=== PATIENT | female | born 1955 | race Caucasian/White ===

== ENCOUNTER 2017-03-04 11:32 | Emergency (ER) | payer OTHER ==
[2017-03-04] MEDS ORDERED: NS 0.9% 1000 ML* 1,000 ML IV ONE (11:48)
[2017-03-04] MEDS ORDERED: Metoclopramide IV* 5 MG/ML 2 ML VIAL IV ONE (11:48)
[2017-03-04] MEDS ORDERED: Ketorolac INJ* 30 MG/ML 1 ML VIAL IV ONE (11:48)
[2017-03-04] MEDS ORDERED: diPHENhydraMINE IV* 50 MG/ML 1 ml VIAL (BENADRYL) IV ONE (11:48)
[2017-03-04 12:17] LABS: ABS Basophils 0 10^3/ul (0-0.2); ABS Eosinophils 0.2 10^3/ul (0-0.6); ABS Lymphocytes 0.5 10^3/ul (1.0-4.8); ABS Monocytes 0.6 10^3/ul (0-0.8); ABS Neutrophils 4.3 10^3/ul (1.5-7.7); ABS Nucleated RBC 0 10^3/ul; Eosinophil % 3.7 % (0-6); Hematocrit 38 % (35-47); Hemoglobin 12.5 g/dl (12.0-16.0); Lymphocyte % 9.3 % (25-47); Mean Corpuscular HGB Conc 33 g/dl (31-36); Mean Corpuscular Hemoglobin 28 pg (27-31); Mean Corpuscular Volume 84 fL (80-97); Mean Platelet Volume 7 um3 (7.4-10.4); Nucleated Red Blood Cells % 0.2; Platelet Count 274 10^3/ul (150-450); Red Blood Count 4.49 10^6/ul (4.0-5.4); Red Cell Distribution Width 15 % (10.5-15); White Blood Count 5.7 10^3/ul (3.5-10.8)
--- NOTE | 2017-03-04 12:21 | RAD ---
HISTORY: Headache COMPARISONS: None TECHNIQUE: Multiple contiguous axial CT scans were obtained of the head without intravenous contrast. FINDINGS: HEMORRHAGE/INFARCT: There is no hemorrhage or acute infarct. MASSES/SHIFT: There is no mass or shift. EXTRA-AXIAL SPACES: There are no extra-axial fluid collections. SULCI AND VENTRICLES: The sulci and ventricles are normal in size and position for the patient's stated age. CEREBRUM: There are no focal parenchymal abnormalities. BRAINSTEM: There are no focal parenchymal abnormalities. CEREBELLUM: There are no focal parenchymal abnormalities. VESSELS: The vessels are grossly normal. PARANASAL SINUSES: The paranasal sinuses are clear. ORBITS: The orbits are unremarkable. BONES AND SOFT TISSUE: No bone or soft tissue abnormalities are noted. OTHER: None IMPRESSION: NO ACUTE INTRACRANIAL PATHOLOGY.
[2017-03-04 12:30] LABS: EGFR Non-African American 97.2 (>60)
[2017-03-04 13:21] VITALS: BP 126/68
--- NOTE | 2017-03-05 08:09 | ED ---
Landen Ge Angela, scribed for Richy Dowell MD on 03/04/17 at 1150 . Influenza-Like Illness - HPI Summary HPI Summary: This pt is a 61 y/o female presenting to [facility] c/o flu like symptoms x3 days. Pt reports progressively worsening nonproductive cough and sore throat. She states she saw her PCP (Dr. Sahni) yesterday and was prescribed Tamiflu as he thought it was the flu. Pt notes she had a fever last night. Today she reports nausea, vomiting, and headache. Denies fever today. - History of Current Complaint Chief Complaint: EDFluSymptoms Time Seen by Provider: 03/04/17 11:40 Hx Obtained From: Patient Onset/Duration: Lasting Days, Still Present Severity: Moderate Associated Signs & Symptoms: Fever - yesterday, Cough, Sore Throat, Headache, Vomiting - Allergy/Home Medications Allergies/Adverse Reactions: Allergies Allergy/AdvReac Type Severity Reaction Status Date / Time No Known Allergies Allergy Verified 03/04/17 11:35 Home Medications: Home Medications Alitretinoin [Panretin] 0.1 % TOPICAL BID 03/04/17 [History Confirmed 03/04/17] Lidocaine 2% VISCOUS* [Xylocaine 2% Viscous*] 15 ml SWISH SPIT Q4H 03/04/17 [ History Confirmed 03/04/17] Lisinopril/HCTZ 20/12.5(NF) [Zestoretic 20/12.5(NF)] 1 tab PO DAILY 03/04/17 [ History Confirmed 03/04/17] Oseltamivir CAP* [Tamiflu CAP*] 75 mg PO BID 03/04/17 [History Confirmed ] Triamcinolone 0.1% CREAM (NF) [Kenalog 0.1% Cream (NF)] 1 applic TOPICAL BID [History Confirmed 03/04/17] diPHENhydraMINE PO* [Benadryl PO 25 MG TAB*] 25 mg PO DAILY 03/04/17 [History Confirmed 03/04/17] PMH/Surg Hx/FS Hx/Imm Hx Endocrine/Hematology History: Denies: Hx Diabetes Cardiovascular History: Reports: Hx Hypertension - W/MEDS Musculoskeletal History: Denies: Hx Osteoporosis - Cancer History Hx Chemotherapy: No Hx Radiation Therapy: No - Surgical History Surgery Procedure, Year, and Place: Hysterectomy. knee surgery. corneal repairs Infectious Disease History: No Infectious Disease History: Denies: Traveled Outside the [place] in Last 30 Days - Family History Known Family History: Negative: Cardiac Disease, Diabetes - Social History Alcohol Use: Weekly Substance Use Type: Reports: None Hx Tobacco Use: No Smoking Status (MU): Never Smoked Tobacco Review of Systems Negative: Fever - yesterday, not today, Chills Positive: Sore Throat Positive: Cough Positive: Vomiting, Nausea Positive: Headache All Other Systems Reviewed And Are Negative: Yes Physical Exam - Summary Physical Exam Summary: VITAL SIGNS: Reviewed. GENERAL: Patient is a well-developed and nourished female who is lying comfortable in the stretcher. Patient is not in any acute respiratory distress. Pt looks dehydrated. HEAD AND FACE: No signs of trauma. No ecchymosis, hematomas or skull depressions. No sinus tenderness. EYES: PERRLA, EOMI x 2, No injected conjunctiva, no nystagmus. EARS: Hearing grossly intact. Ear canals and tympanic membranes are within normal limits. MOUTH: Oropharynx within normal limits. Dry oral mucosa. NECK: Supple, trachea is midline, no adenopathy, no JVD, no carotid bruit, no c- spine tenderness, neck with full ROM. CHEST: Symmetric, no tenderness at palpation LUNGS: Clear to auscultation bilaterally. No wheezing or crackles. CVS: Regular rate and rhythm, S1 and S2 present, no murmurs or gallops appreciated. ABDOMEN: Soft, non-tender. No signs of distention. No rebound no guarding, and no masses palpated. Bowel sounds are normal. EXTREMITIES: FROM in all major joints, no edema, no cyanosis or clubbing. NEURO: Alert and oriented x 3. No acute neurological deficits. Speech is normal and follows commands. SKIN: Dry and warm Triage Information Reviewed: Yes Vital Signs On Initial Exam: Initial Vitals Temp Pulse Resp BP Pulse Ox 98.4 F 80 16 138/79 94 03/04/17 11:33 03/04/17 11:33 03/04/17 11:33 03/04/17 11:33 03/04/17 11:33 Vital Signs Reviewed: Yes - Ramon Coma Scale Best Eye Response: 4 - Spontaneous Best Motor Response: 6 - Obeys Commands Best Verbal Response: 5 - Oriented Coma Scale Total: 15 Diagnostics - Vital Signs Vital Signs Temp Pulse Resp BP Pulse Ox 03/04/17 11:33 98.4 F 80 16 138/79 94 - Laboratory Lab Results: Lab Results 03/04/17 03/04/17 03/04/17 Range/Units 11:59 11:59 11:59 WBC 5.7 (3.5-10.8) 10^3/ul RBC 4.49 (4.0-5.4) 10^6/ul Hgb 12.5 (12.0-16.0) g/dl Hct 38 (35-47) % MCV 84 (80-97) fL MCH 28 (27-31) pg MCHC 33 (31-36) g/dl RDW 15 (10.5-15) % Plt Count 274 (150-450) 10^3/ul MPV 7 L (7.4-10.4) um3 Neut % (Auto) 76.1 (38-83) % Lymph % (Auto) 9.3 L (25-47) % Perry % (Auto) 10.0 H (1-9) % Eos % (Auto) 3.7 (0-6) % Baso % (Auto) 0.9 (0-2) % Absolute Neuts (auto) 4.3 (1.5-7.7) 10^3/ul Absolute Lymphs (auto) 0.5 L (1.0-4.8) 10^3/ul Absolute Monos (auto) 0.6 (0-0.8) 10^3/ul Absolute Eos (auto) 0.2 (0-0.6) 10^3/ul Absolute Basos (auto) 0 (0-0.2) 10^3/ul Absolute Nucleated RBC 0 10^3/ul Nucleated RBC % 0.2 ESR 28 (0-30) mm/Hr APTT 30.1 (26.0-36.3) seconds Carbon Monoxide Screen < 4 (<4.0) % Sodium (133-145) mmol/L Potassium (3.5-5.0) mmol/L Chloride (101-111) mmol/L Carbon Dioxide (22-32) mmol/L Anion Gap (2-11) mmol/L BUN (6-24) mg/dL Creatinine (0.51-0.95) mg/dL Est GFR ( Amer) (>60) Est GFR (Non-Af Amer) (>60) BUN/Creatinine Ratio (8-20) Glucose (70-100) mg/dL Lactic Acid (0.5-2.0) mmol/L Calcium (8.6-10.3) mg/dL Total Bilirubin (0.2-1.0) mg/dL AST (13-39) U/L ALT (7-52) U/L Alkaline Phosphatase (34-104) U/L Total Protein (6.4-8.9) g/dL Albumin (3.2-5.2) g/dL Globulin (2-4) g/dL Albumin/Globulin Ratio (1-3) Influenza A (Rapid) (Negative) Influenza B (Rapid) (Negative) Group A Strep Rapid (Negative) 03/04/17 03/04/17 03/04/17 Range/Units 11:59 11:59 12:33 WBC (3.5-10.8) 10^3/ul RBC (4.0-5.4) 10^6/ul Hgb (12.0-16.0) g/dl Hct (35-47) % MCV (80-97) fL MCH (27-31) pg MCHC (31-36) g/dl RDW (10.5-15) % Plt Count (150-450) 10^3/ul MPV (7.4-10.4) um3 Neut % (Auto) (38-83) % Lymph % (Auto) (25-47) % Perry % (Auto) (1-9) % Eos % (Auto) (0-6) % Baso % (Auto) (0-2) % Absolute Neuts (auto) (1.5-7.7) 10^3/ul Absolute Lymphs (auto) (1.0-4.8) 10^3/ul Absolute Monos (auto) (0-0.8) 10^3/ul Absolute Eos (auto) (0-0.6) 10^3/ul Absolute Basos (auto) (0-0.2) 10^3/ul Absolute Nucleated RBC 10^3/ul Nucleated RBC % ESR (0-30) mm/Hr APTT (26.0-36.3) seconds Carbon Monoxide Screen (<4.0) % Sodium 133 (133-145) mmol/L Potassium 3.6 (3.5-5.0) mmol/L Chloride 100 L (101-111) mmol/L Carbon Dioxide 26 (22-32) mmol/L Anion Gap 7 (2-11) mmol/L BUN 13 (6-24) mg/dL Creatinine 0.62 (0.51-0.95) mg/dL Est GFR ( Amer) 125.0 (>60) Est GFR (Non-Af Amer) 97.2 (>60) BUN/Creatinine Ratio 21.0 H (8-20) Glucose 122 H (70-100) mg/dL Lactic Acid 0.8 (0.5-2.0) mmol/L Calcium 8.5 L (8.6-10.3) mg/dL Total Bilirubin 0.40 (0.2-1.0) mg/dL AST 12 L (13-39) U/L ALT 13 (7-52) U/L Alkaline Phosphatase 44 (34-104) U/L Total Protein 6.4 (6.4-8.9) g/dL Albumin 3.6 (3.2-5.2) g/dL Globulin 2.8 (2-4) g/dL Albumin/Globulin Ratio 1.3 (1-3) Influenza A (Rapid) Negative (Negative) Influenza B (Rapid) Positive H (Negative) Group A Strep Rapid (Negative) 03/04/17 Range/Units 12:39 WBC (3.5-10.8) 10^3/ul RBC (4.0-5.4) 10^6/ul Hgb (12.0-16.0) g/dl Hct (35-47) % MCV (80-97) fL MCH (27-31) pg MCHC (31-36) g/dl RDW (10.5-15) % Plt Count (150-450) 10^3/ul MPV (7.4-10.4) um3 Neut % (Auto) (38-83) % Lymph % (Auto) (25-47) % Perry % (Auto) (1-9) % Eos % (Auto) (0-6) % Baso % (Auto) (0-2) % Absolute Neuts (auto) (1.5-7.7) 10^3/ul Absolute Lymphs (auto) (1.0-4.8) 10^3/ul Absolute Monos (auto) (0-0.8) 10^3/ul Absolute Eos (auto) (0-0.6) 10^3/ul Absolute Basos (auto) (0-0.2) 10^3/ul Absolute Nucleated RBC 10^3/ul Nucleated RBC % ESR (0-30) mm/Hr APTT (26.0-36.3) seconds Carbon Monoxide Screen (<4.0) % Sodium (133-145) mmol/L Potassium (3.5-5.0) mmol/L Chloride (101-111) mmol/L Carbon Dioxide (22-32) mmol/L Anion Gap (2-11) mmol/L BUN (6-24) mg/dL Creatinine (0.51-0.95) mg/dL Est GFR ( Amer) (>60) Est GFR (Non-Af Amer) (>60) BUN/Creatinine Ratio (8-20) Glucose (70-100) mg/dL Lactic Acid (0.5-2.0) mmol/L Calcium (8.6-10.3) mg/dL Total Bilirubin (0.2-1.0) mg/dL AST (13-39) U/L ALT (7-52) U/L Alkaline Phosphatase (34-104) U/L Total Protein (6.4-8.9) g/dL Albumin (3.2-5.2) g/dL Globulin (2-4) g/dL Albumin/Globulin Ratio (1-3) Influenza A (Rapid) (Negative) Influenza B (Rapid) (Negative) Group A Strep Rapid Negative (Negative) Result Diagrams: 03/04/17 11:59 03/04/17 11:59 Lab Statement: Any lab studies that have been ordered have been reviewed, and results considered in the medical decision making process. - CT Brain CT CT Interpretation: No Acute Changes - IMPRESSION: No acute intracranial pathology. Dr. Dowell has reviewed this radiology report. CT Interpretation Completed By: Radiologist - EKG 11:51 Cardiac Rate: NL EKG Rhythm: Sinus Rhythm - at 79 bpm EKG Interpretation: No ST elevation EKG Comparison: No Significant Change - similar to prior EKG on 06/28/08. Flu Symptom Course/Dx - Course Course Of Treatment: This pt is a 61 y/o female presenting to [facility] c/o flu like symptoms x3 days. Pt reports progressively worsening nonproductive cough and sore throat. She states she saw her PCP (Dr. Sahni) yesterday and was prescribed Tamiflu as he thought it was the flu. Pt notes she had a fever last night. Today she reports nausea, vomiting, and headache. Denies fever today. Test results without any significant abnormalities. Influenza B is positive. Pt was hydrated and her symptoms improved. She is eating and drinking without nausea and vomiting. The pt was given Toradol, Reglan and Benadryl for the headache and at this point the pt reports no pain. Therefore the pt will be discharged home with follow up from PCP. - Diagnoses Differential Diagnosis/HQI/PQRI: Positive: Bronchitis, Influenza, Pneumonia, Upper Respiratory Infection Provider Diagnoses: Influenza B Discharge - Discharge Plan Condition: Stable Disposition: HOME Patient Education Materials: Influenza (ED) Referrals: Atul Sahni MD [Primary Care Provider] - Additional Instructions: Please follow up with your primary care provider. RETURN TO THE ED FOR ANY WORSENING SYMPTOMS. The documentation as recorded by the Landen carranza Angela accurately reflects the service I personally performed and the decisions made by , Richy Dowell MD.
== END 2017-03-04 13:22 | disposition home or self-care (01) ==
LOC: ED 11:32
DX: J11.1 Influenza due to unidentified influenza virus with other respiratory manifestations (principal); R50.9 Fever, unspecified; R05 Cough; J02.9 Acute pharyngitis, unspecified; R51 Headache; R11.2 Nausea with vomiting, unspecified
CPT/HCPCS: 36415; 70450; 80053; 82375; 83605; 85025; 85652; 85730; 87502; 87651; 93005; 96374; 96375; 99283; J1200; J1885; J2765

== ENCOUNTER 2018-03-30 10:54 | Emergency (ER) | payer OTHER ==
[2018-03-30 11:55] VITALS: BP 162/94
[2018-03-30] MEDS ORDERED: Albuterol/Ipratropium NEB.SOL* Albuterol 2.5 MG/Ipratropium 0.5 MG 3 ML INH ONE (12:54)
--- NOTE | 2018-03-30 12:55 | ED ---
Respiratory - HPI Summary HPI Summary: 63 year old female presents with cough and fever for the past week. She states that she has been having increasing sob. She is having difficulties walking up stairs due to sob. she admits to occasionally chest pain when she coughs. she admits to sinus congestion and sore throat. no abdominal pain, nausea, vomiting or diarrhea. she started using an inhaler yesterday which has helped a little. no history of asthma or COPD and she is not a smoker. - History of Current Complaint Chief Complaint: UCGeneralIllness Stated Complaint: COUGH Time Seen by Provider: 03/30/18 12:39 Pain Intensity: 0 - Allergy/Home Medications Allergies/Adverse Reactions: Allergies Allergy/AdvReac Type Severity Reaction Status Date / Time No Known Allergies Allergy Verified 03/30/18 11:55 Home Medications: Home Medications Albuterol inh POWDER (NF) [Proair Respiclick] 108 mcg IN DAILY WITH MEAL [History Confirmed 03/30/18] Metformin HCl 500 mg PO DAILY WITH MEAL 03/30/18 [History Confirmed 03/30/18] PMH/Surg Hx/FS Hx/Imm Hx Endocrine/Hematology History: Denies: Hx Diabetes, Hx Thyroid Disease Cardiovascular History: Reports: Hx Hypertension - W/MEDS Respiratory History: Denies: Hx Asthma, Hx Chronic Obstructive Pulmonary Disease (COPD) GI History: Denies: Hx Ulcer Musculoskeletal History: Denies: Hx Osteoporosis - Cancer History Hx Chemotherapy: No Hx Radiation Therapy: No - Surgical History Surgery Procedure, Year, and Place: Hysterectomy. knee surgery. corneal repairs Infectious Disease History: No Infectious Disease History: Denies: Hx Hepatitis, Hx Human Immunodeficiency Virus (HIV), Traveled Outside the [place] in Last 30 Days - Family History Known Family History: Negative: Cardiac Disease, Diabetes - Social History Alcohol Use: Occasionally Substance Use Type: Reports: None Hx Tobacco Use: No Smoking Status (MU): Never Smoked Tobacco Review of Systems Positive: Fever Positive: Chest Pain Positive: Shortness Of Breath, Cough Negative: Abdominal Pain All Other Systems Reviewed And Are Negative: Yes Physical Exam Triage Information Reviewed: Yes Vital Signs On Initial Exam: Initial Vitals Temp Pulse Resp BP Pulse Ox 98.0 F 82 21 162/94 96 03/30/18 11:49 03/30/18 11:49 03/30/18 11:49 03/30/18 11:49 03/30/18 11:49 Vital Signs Reviewed: Yes Appearance: Positive: Ill-Appearing Skin: Positive: Warm, Dry Head/Face: Positive: Normal Head/Face Inspection Eyes: Positive: Normal, EOMI, ALESHA, Conjunctiva Clear ENT: Positive: Normal ENT inspection, Pharynx normal, TMs normal Respiratory/Lung Sounds: Positive: Breath Sounds Present, Wheezes Cardiovascular: Positive: Normal, RRR Abdomen Description: Positive: Nontender, Soft Bowel Sounds: Positive: Present Musculoskeletal: Positive: Normal Neurological: Positive: Normal Psychiatric: Positive: Normal Diagnostics - Vital Signs Vital Signs Temp Pulse Resp BP Pulse Ox 03/30/18 11:49 98.0 F 82 21 162/94 96 - Laboratory Lab Statement: Any lab studies that have been ordered have been reviewed, and results considered in the medical decision making process. - Radiology chest Radiology Interpretation Completed By: Radiologist Summary of Radiographic Findings: IMPRESSION: #. Stigmata of probable obstructive lung disease. No acute pulmonary or cardiac process. evident. Re-Evaluation - Re-Evaluation First Eval Re-Evaluation Time: 13:28 Change: Improved Comment: lung CTA Disposition - Course Course Of Treatment: 63 year old female presents with cough and fever for the past week. She states that she has been having increasing sob. She is having difficulties walking up stairs due to sob. she admits to occasionally chest pain when she coughs. she admits to sinus congestion and sore throat. no abdominal pain, nausea, vomiting or diarrhea. she started using an inhaler yesterday which has helped a little. no history of asthma or COPD and she is not a smoker. on exam diffuse wheezing noted. gave breathing treatment and lungs became CTA. chest xray shows obstructive lung disorder. will discharge with prednsione and with severity of symptoms azithromycin. instructed need to follow up with primary about symptoms. caution if sob becomes worse to follow up in ED. patient has dx of htn and can follow up with primary about such. patient understand and agrees with plan. - Differential Dx - Cardiopulmonary Differential Diagnoses - Cardiopulmonary: Bronchitis, Influenza, Lower Resp Infection - Diagnoses Provider Diagnoses: Bronchitis Discharge - Sign-Out/Discharge Documenting (check all that apply): Patient Departure All imaging exams completed and their final reports reviewed: Yes - Discharge Plan Condition: Good Disposition: HOME Prescriptions: Azithromycin TAB* [Zithromax TAB (Z-COLTEN) 250 mg #6 tabs] 2 tab PO .TODAY, THEN 1 DAILY #1 colten Benzonatate CAP* [Tessalon 100 MG CAP*] 100 mg PO TID PRN #21 cap PRN Reason: Cough predniSONE TAB* [Deltasone TAB*] 50 mg PO DAILY #5 tab Patient Education Materials: Acute Bronchitis (ED) Referrals: Atul Sahni MD [Primary Care Provider] - Additional Instructions: Use inhaler up to two puffs every 4 hours for cough and wheezing Take steroid once a day for 5 days Take antibiotic two tablets first day, one tablet thereafter for 4 days take tessalon three times a day for cough Take Tylenol for pain every 6 hours Follow up with primary within 5 days Return to ED if develop severe shortness of breath, worsening chest pain, or any new or worsening symptoms - Billing Disposition and Condition Condition: GOOD Disposition: Home - Attestation Statements Provider Attestation: Per institutional requirements, I have reviewed the chart, however, I was not consulted specifically or made aware of this patient by the midlevel provider. I did not personally evaluate, interact with , or disposition this patient.
== END 2018-03-30 13:46 | disposition home or self-care (01) ==
LOC: UCEAST 10:54
DX: J40 Bronchitis, not specified as acute or chronic (principal); I10 Essential (primary) hypertension
CPT/HCPCS: 71046; 99212; A9270-GY; G0463

== ENCOUNTER 2018-06-11 18:06 | Emergency (ER) | payer OTHER ==
[2018-06-11 18:17] VITALS: BP 118/71
--- NOTE | 2018-06-11 18:50 | UC ---
Lower Extremity/Ankle HPI - HPI Summary HPI Summary: 63-year-old female who was sent here by her primary care provider because of left calf pain and swelling which she noticed about 3:30 PM today. She has no injury. - History of Current Complaint Chief Complaint: UCLowerExtremity Stated Complaint: PAIN IN LEG Time Seen by Provider: 06/11/18 18:19 Hx Obtained From: Patient Hx Last Menstrual Period: na ?: No Onset/Duration: Gradual Onset Severity Initially: Mild Severity Currently: Mild Pain Intensity: 3 Aggravating Factor(s): Ambulation Alleviating Factor(s): Rest Able to Bear Weight: Yes - Allergies/Home Medications Allergies/Adverse Reactions: Allergies Allergy/AdvReac Type Severity Reaction Status Date / Time codeine Allergy Headache Verified 06/11/18 18:18 oxycodone Allergy Nausea Verified 06/11/18 18:18 PMH/Surg Hx/FS Hx/Imm Hx Previously Healthy: Yes Endocrine History: Diabetes - Patient is on metformin. - Surgical History Surgical History: Yes Surgery Procedure, Year, and Place: Hysterectomy. knee surgery. corneal repairs - Family History Known Family History: Negative: Cardiac Disease, Diabetes - Social History Alcohol Use: Occasionally Substance Use Type: None Smoking Status (MU): Never Smoked Tobacco Review of Systems All Other Systems Reviewed And Are Negative: Yes Motor: Positive: Negative Neurovascular: Positive: Negative Musculoskeletal: Positive: Calf Tenderness - Tenderness on palpation left calf proximal portion. Neurological: Positive: Negative Is Patient Immunocompromised?: No Physical Exam Triage Information Reviewed: Yes Appearance: Well-Appearing, No Pain Distress, Well-Nourished Vital Signs: Initial Vital Signs Temp 98.4 F 06/11/18 18:11 Pulse 94 06/11/18 18:11 Resp 16 06/11/18 18:11 BP 118/71 06/11/18 18:11 Pulse Ox 97 06/11/18 18:11 Vital Signs Reviewed: Yes Respiratory: Positive: Lungs clear, Normal breath sounds, No respiratory distress, No accessory muscle use Cardiovascular: Positive: RRR, No Murmur, Pulses Normal, Brisk Capillary Refill Musculoskeletal: Positive: Strength Intact, ROM Intact, Other: - The left calf is mildly swollen (see nurse's measurements of both calves). There is no visible erythema however on the medial proximal aspect of the left It is warm to touch and tender on palpation. She has good peripheral pulses neuro sensation and capillary refill. Neurological: Positive: Alert, Muscle Tone Normal Psychological Exam: Normal Skin: Positive: Other Lower Extremity Course/Dx - Course Course Of Treatment: Venous Doppler negative for DVT. After discussion with Dr. Quintanilla it's felt this is a superficial phlebitis. She is to use warm moist compresses 4-6 times a day, take Motrin 600 mg every 8 hours with food. I want her to be re- evaluated by her primary care provider on Friday. - Differential Dx/Diagnosis Provider Diagnosis: Phlebitis Discharge - Sign-Out/Discharge Documenting (check all that apply): Patient Departure All imaging exams completed and their final reports reviewed: Yes - Discharge Plan Condition: Fair Disposition: HOME Prescriptions: Ibuprofen TAB* [Motrin TAB* 600 MG] 600 mg PO Q8H PRN 7 Days #21 tab PRN Reason: Pain Patient Education Materials: Phlebitis (ED) Referrals: Atul Sahni MD [Primary Care Provider] - Additional Instructions: Apply warm moist compresses to the area, limit ambulation, take Motrin every 8 hours with food. Definite follow-up with your primary care provider. Call tomorrow and make an appointment to be rechecked on Friday. - Billing Disposition and Condition Condition: FAIR Disposition: Home
== END 2018-06-11 19:50 | disposition home or self-care (01) ==
LOC: UCEAST 18:06
DX: I80.02 Phlebitis and thrombophlebitis of superficial vessels of left lower extremity (principal); Z88.5 Allergy status to narcotic agent; E11.9 Type 2 diabetes mellitus without complications; Z79.84 Long term (current) use of oral hypoglycemic drugs
CPT/HCPCS: 99212; G0463